=== PATIENT | female | born 1980 | race American Indian/Alaskan Native ===

== ENCOUNTER 2016-10-16 11:13 | Emergency (ER) | payer OTHER ==
[2016-10-16 11:51] LABS: Basophils % (Auto) 0.5 % (0.0-1.8); Eosinophils % (Auto) 2.5 % (0.0-4.3); Hematocrit 40.9 % (30.3-42.9); Mean Corpuscular HGB Conc 32 % (30-34); Mean Corpuscular Hemoglobin 28 pg (28-32); Mean Corpuscular Volume 90 fl (79-97); Platelet Count 215 K/mm3 (140-440); Red Blood Count 4.56 M/mm3 (3.65-5.03); Red Cell Distribution Width 14.8 % (13.2-15.2); White Blood Count 6.1 K/mm3 (4.5-11.0)
[2016-10-16 12:14] LABS: Anion Gap 15 mmol/L; BUN/Creatinine Ratio 5.55; Blood Urea Nitrogen 5 mg/dL (7-17); Calcium 8.6 mg/dL (8.4-10.2); Carbon Dioxide 26 mmol/L (22-30); Chloride 104.1 mmol/L (98-107); Glucose 95 mg/dL (65-100); Potassium 4.8 mmol/L (3.6-5.0); Sodium 140 mmol/L (137-145)
[2016-10-16] MEDS ORDERED: ASPIRIN PO ONE (12:32)
--- NOTE | 2016-10-16 12:36 | Emergency Department Report ---
ED Chest Pain HPI - General Chief Complaint: Chest Pain Stated Complaint: CHEST PAIN/CESAR Time Seen by Provider: 10/16/16 12:21 Source: patient Mode of arrival: Ambulatory Limitations: No Limitations - History of Present Illness Initial Comments: 36-year-old female here with chest pain. Patient states that she noticed chest pain while walking to the store today. She felt a tightening in the center of her chest did not radiate. When she stopped the pain went away she noticed again when she started to ease her herself again. She states she's had similar once before in the past but was not significant. She smokes but otherwise has no significant risk factors. MD Complaint: chest pain -: Sudden Onset: during exertion Pain Location: substernal Pain Radiation: none Severity: moderate Quality: tightness Consistency: intermittent, now resolved Improves With: rest Worsens With: movement re: dyspnea. denies: nausea, vomting, diaphoresis - Related Data Previous Rx's Medication Instructions Recorded Last Taken Type Cetirizine HCl [ZyrTEC] 10 mg PO QAM #7 capsule 01/17/16 Unknown Rx Fluticasone [Flonase] 1 spray NS QDAY #1 bottle 01/17/16 Unknown Rx predniSONE [Deltasone] 50 mg PO QDAY #3 tab 01/17/16 Unknown Rx Aspirin [Aspirin BABY CHEW TAB] 81 mg PO QDAY #30 tab.chew 10/16/16 Unknown Rx Allergies Allergy/AdvReac Type Severity Reaction Status Date / Time No Known Allergies Allergy Unverified 01/16/16 22:03 Heart Score - HEART Score History: Moderately suspicious EKG: Normal Age: < 45 Risk factors: 1-2 risk factors Troponin: < normal limit HEART Score: 2 ED Review of Systems ROS: Stated complaint: CHEST PAIN/CESAR Other details as noted in HPI Comment: All other systems reviewed and negative Constitutional: denies: chills, fever Eyes: denies: eye pain, eye discharge, vision change ENT: denies: ear pain, throat pain Respiratory: denies: cough, shortness of breath, wheezing Cardiovascular: chest pain. denies: palpitations Endocrine: no symptoms reported Gastrointestinal: denies: abdominal pain, nausea, diarrhea Genitourinary: denies: urgency, dysuria, discharge Musculoskeletal: denies: back pain, joint swelling, arthralgia Skin: denies: rash, lesions Neurological: denies: headache, weakness, paresthesias Psychiatric: denies: anxiety, depression Hematological/Lymphatic: denies: easy bleeding, easy bruising ED Past Medical Hx - Past Medical History Previous Medical History?: No - Surgical History Past Surgical History?: Yes Additional Surgical History: c-sections - Social History Smoking Status: Current Some Day Smoker Substance Use Type: Alcohol - Medications Home Medications: Home Medications Medication Instructions Recorded Confirmed Last Taken Type Cetirizine HCl [ZyrTEC] 10 mg PO QAM #7 capsule 01/17/16 Unknown Rx Fluticasone [Flonase] 1 spray NS QDAY #1 bottle 01/17/16 Unknown Rx predniSONE [Deltasone] 50 mg PO QDAY #3 tab 01/17/16 Unknown Rx Aspirin [Aspirin BABY CHEW TAB] 81 mg PO QDAY #30 tab.chew 10/16/16 Unknown Rx ED Physical Exam - General Limitations: No Limitations General appearance: alert, in no apparent distress - Head Head exam: Present: atraumatic, normocephalic - Eye Eye exam: Present: normal appearance. Absent: scleral icterus, conjunctival injection - ENT ENT exam: Present: mucous membranes moist - Neck Neck exam: Present: normal inspection. Absent: lymphadenopathy, thyromegaly - Respiratory Respiratory exam: Present: normal lung sounds bilaterally. Absent: respiratory distress - Cardiovascular Cardiovascular Exam: Present: regular rate, normal rhythm, normal heart sounds. Absent: systolic murmur, diastolic murmur, rubs, gallop - GI/Abdominal GI/Abdominal exam: Present: soft, normal bowel sounds - Extremities Exam Extremities exam: Present: normal inspection - Back Exam Back exam: Present: normal inspection - Neurological Exam Neurological exam: Present: alert, oriented X3 - Psychiatric Psychiatric exam: Present: normal affect, normal mood - Skin Skin exam: Present: warm, dry, intact, normal color. Absent: rash ED Course Vital Signs 10/16/16 10/16/16 10/16/16 11:25 12:14 12:15 Temperature 98.6 F Pulse Rate 78 Respiratory 16 Rate Blood Pressure 126/74 O2 Sat by Pulse 100 99 99 Oximetry 10/16/16 10/16/16 10/16/16 12:16 12:18 12:20 Temperature Pulse Rate Respiratory Rate Blood Pressure O2 Sat by Pulse 99 100 99 Oximetry 10/16/16 10/16/16 10/16/16 12:22 12:24 12:26 Temperature Pulse Rate 96 H 69 64 Respiratory 15 20 11 L Rate Blood Pressure O2 Sat by Pulse 98 97 98 Oximetry 10/16/16 10/16/16 12:28 12:31 Temperature Pulse Rate 63 Respiratory 22 19 Rate Blood Pressure O2 Sat by Pulse 99 Oximetry ED Medical Decision Making - Lab Data Result diagrams: 10/16/16 11:32 10/16/16 11:32 Laboratory Results - last 24 hr 10/16/16 10/16/16 11:32 11:32 WBC 6.1 RBC 4.56 Hgb 13.0 Hct 40.9 MCV 90 MCH 28 MCHC 32 RDW 14.8 Plt Count 215 Lymph % (Auto) 37.3 H Barren % (Auto) 7.4 H Eos % (Auto) 2.5 Baso % (Auto) 0.5 Lymph # 2.3 Barren # 0.5 Eos # 0.2 Baso # 0.0 Seg Neutrophils % 52.3 Seg Neutrophils # 3.2 Sodium 140 Potassium 4.8 Chloride 104.1 Carbon Dioxide 26 Anion Gap 15 BUN 5 L Creatinine 0.9 Estimated GFR > 60 BUN/Creatinine Ratio 5.55 Glucose 95 Calcium 8.6 Troponin T < 0.010 - EKG Data 10/16/16 12:35 Normal sinus rhythm rate 81 normal axis normal intervals and no ST-T wave changes - Medical Decision Making 36-year-old female here with exertional chest pain. No associated symptoms. EKG is unremarkable. First troponin is negative. She will be heart score low risk. She does have exertional chest pain and I will recommend follow-up as an outpatient. Chest x-ray clear. Portions of this chart were dictated with dictation software. There may be dictation errors contained within this note. Critical care attestation.: If time is entered above; I have spent that time in minutes in the direct care of this critically ill patient, excluding procedure time. ED Disposition Clinical Impression: Chest pain Disposition: DC-01 TO HOME OR SELFCARE Is pt being admited?: No Does the pt Need Aspirin: No Condition: Stable Instructions: Chest Pain (ED) Additional Instructions: Please follow-up with your primary care or a locomotive pipe fitter for an outpatient stress test. Prescriptions: Aspirin [Aspirin BABY CHEW TAB] 81 mg PO QDAY #30 tab.chew Referrals: PRIMARY CARE, [Primary Care Provider] - 3-5 Days
--- NOTE | 2016-10-16 13:01 | XRay Report ---
Chest 2 views: History: Chest pain. Findings: Normal cardiomediastinal silhouette. Trachea is midline. No consolidation, pneumothorax or pleural effusion. Impression: No acute cardiopulmonary findings.
[2016-10-16 15:55] VITALS: BP 122/65
== END 2016-10-16 15:56 | disposition home or self-care (01) ==
LOC: ED 11:13
DX: R07.9 Chest pain, unspecified (principal); Z72.0 Tobacco use; Z79.82 Long term (current) use of aspirin
CPT/HCPCS: 36415; 71020; 80048; 84484; 85025; 93005; 93010